=== PATIENT | female | born 1940 | race Caucasian/White ===

== ENCOUNTER 2021-06-22 09:00 | Inpatient (IN) | payer OTHER ==
[~2021-06-22] VITALS: Ht 154.9 cm; Wt 75.3 kg
[2021-06-22] MEDS ORDERED: PROTONIX40 MG PO (11:48)
[2021-06-22] MEDS ORDERED: ZESTRIL40 M1 PO (11:48)
[2021-06-22] MEDS ORDERED: ZOCOR40 MG PO (11:48)
[2021-06-22] MEDS ORDERED: NORVASC5 MG PO (11:48)
[2021-06-24] MEDS ORDERED: ACTIDOGESIC CA1 EACH (11:34)
[2021-06-24] MEDS ORDERED: HYDROCHLOROTHIA25 MG (11:34)
[2021-06-24] MEDS ORDERED: QUINAPRIL HCL40 MG (11:34)
== END 2021-06-25 09:50 | disposition home or self-care (01) | DRG 740 ==
LOC: SURH 06-24 06:00 → O/R 06-24 08:54 → SURH 06-24 09:00
PROVIDERS: Surgery; ADMIT Obstetrics & Gynecology Gynecologic Oncology; ATTEND Obstetrics & Gynecology Gynecologic Oncology
PROC: 0UT74ZZ Resection of Bilateral Fallopian Tubes, Percutaneous Endoscopic Approach (ICD-10-PCS; 2021-06-24)
PROC: 07BC4ZZ Excision of Pelvis Lymphatic, Percutaneous Endoscopic Approach (ICD-10-PCS; 2021-06-24)
PROC: 0WUF47Z Supplement Abdominal Wall with Autologous Tissue Substitute, Percutaneous Endoscopic Approach (ICD-10-PCS; 2021-06-24)
PROC: 0UT94ZZ Resection of Uterus, Percutaneous Endoscopic Approach (ICD-10-PCS; principal; 2021-06-24 06:00)
PROC: 0UT24ZZ Resection of Bilateral Ovaries, Percutaneous Endoscopic Approach (ICD-10-PCS; 2021-06-24 06:00)
DX: C54.1 Malignant neoplasm of endometrium (principal); K42.0 Umbilical hernia with obstruction, without gangrene; N80.0 Endometriosis of uterus; D25.1 Intramural leiomyoma of uterus

== ENCOUNTER 2021-06-28 18:38 | Inpatient (IN) | payer OTHER ==
[~2021-06-28] VITALS: Ht 154.9 cm; Wt 74.8 kg
[~2021-06-28 18:38] MED LIST: ACTIDOGESIC CA1 EACH; HYDROCHLOROTHIA25 MG; NORVASC5 MG PO; PROTONIX40 MG PO; QUINAPRIL HCL40 MG; ZESTRIL40 M1 PO; ZOCOR40 MG PO
[2021-07-06] MEDS ORDERED: ELIQUIS5 MG PO (12:46)
[2021-07-06] MEDS ORDERED: PANTOPRAZOLE SO40 MG PO (12:46)
[2021-07-06] MEDS ORDERED: BISACODYL5 MG PO (12:46)
[2021-07-06] MEDS ORDERED: AMLODIPINE BESYL5 MG PO (12:46)
[2021-07-06] MEDS ORDERED: SIMVASTATIN40 MG PO (12:46)
[2021-07-06] MEDS ORDERED: FAMOTIDINE20 MG PO (12:46)
[2021-07-06] MEDS ORDERED: Neurin-Sl Tablet Sl SL (12:46)
[2021-07-06] MEDS ORDERED: B Complex CAPSULE PO (12:46)
== END 2021-07-06 20:06 | disposition home health service (06) | DRG 301 ==
LOC: ER 18:38 → MEDJ 06-29 07:58 → SEC-K 06-29 07:58 → MEDJ 06-29 11:03
PROVIDERS: ADMIT Internal Medicine; ATTEND Internal Medicine
PROC: 4A033R1 Measurement of Arterial Saturation, Peripheral, Percutaneous Approach (ICD-10-PCS; principal; 2021-06-29)
PROC: B24BZZZ Ultrasonography of Heart with Aorta (ICD-10-PCS; 2021-06-29)
PROC: 4A12X4Z Monitoring of Cardiac Electrical Activity, External Approach (ICD-10-PCS; 2021-06-29)
PROC: CB2YYZZ Tomographic (Tomo) Nuclear Medicine Imaging of Respiratory System using Other Radionuclide (ICD-10-PCS; 2021-06-29)
PROC: 3E0F7SF Introduction of Other Gas into Respiratory Tract, Via Natural or Artificial Opening (ICD-10-PCS; 2021-06-30)
DX: T81.718A Complication of other artery following a procedure, not elsewhere classified, initial encounter (principal); I26.99 Other pulmonary embolism without acute cor pulmonale; C54.1 Malignant neoplasm of endometrium; I10 Essential (primary) hypertension; Z20.822 Contact with and (suspected) exposure to COVID-19; Y83.8 Other surgical procedures as the cause of abnormal reaction of the patient, or of later complication, without mention of misadventure at the time of the procedure